=== PATIENT | male | born 1945 ===

== ENCOUNTER 2018-06-27 13:24 | Day surgery (SDC) | payer MEDICARE, OTHER, SELFPAY ==
--- NOTE | 2018-06-27 | PATH_ITS ---
[facility] Accession Number: [id number] . 01 Material submitted: . L1 . 02 Diagnosis: L1, Biopsy: Fragmented bone and fibrous tissue with features consistent with bone remodeling/fracture healing. No evidence of neoplasm. MRV/07/03/2018 . 02 Electronically signed: . Melani Escalona MD, Pathologist NPI- [id number] . 01 Gross description: . Received in formalin, labeled L1, is a core biopsy of murphy-white hard bone (length-0.8 cm, diameter-0.2 cm). Calcified and entirely submitted in cassette A1. ([id number]) /[facility] . 02 Pathologist provided ICD-10: S32.009S . 02 CPT . 404361 Performed at: 01 [facility] [address] [id number] MD Narayan Monge MD Phone: [phone] Performed at: 02 [facility] [address] [address] [place] [id number] MD Kole Mancilla MD Phone: [phone]
--- NOTE | 2018-06-27 | DI.RAD.S_ITS ---
PROCEDURE: XR LUMBAR SPINE MIN 4V INDICATIONS: L1 KYPHOPLASTY TECHNIQUE: 4 views of the lumbar spine acquired. COMPARISON: [facility] Outside Film, MR, MR LUMBAR SPINE WITHOUT CONTRAST, 06/12/2018, 11:54. [facility] [place], CR, XR LUMBAR SPINE 2 OR 3 VIEWS, 05/18/2018, 11:43. FINDINGS: Intraoperative spot fluoroscopic images demonstrating L1 vertebroplasty. Mild cement projects in the T12-L1 disc space. Dictated by: Charles Muse M.D. on 06/28/2018 at 10:54 Approved by: Charles Muse M.D. on 06/28/2018 at 10:56
[2018-06-27 14:17] VITALS: BMI 18.8
[2018-06-27 14:38] VITALS: BP 124/64; PULSE 83; RESP 17; TEMP 36.1; O2SAT 95
[2018-06-27] MEDS: LACTATED RINGERS 1,000 ML 42 ML IV (14:38)
--- NOTE | 2018-06-27 15:23 | PM.PREOP ---
Pre-operative Note Interval Note Pre-op Check: Yes History & Physical Reviewed by Physician and Yes Exam Performed Changes: No
--- NOTE | 2018-06-27 15:24 | PM.OP.1 ---
Operative Date/Time/Diagnoses Date of procedure: 06/27/18 Time of procedure: 16:27 Pre-op diagnosis: L1 compression fracture back pain osteoporosis Post-op diagnosis: same Procedure & Clinicians Procedure: L1 kyphoplasty Same procedure as scheduled: Yes Indications: [age] year old male with intractable pain from an L1 compression fracture. They had failed conservative management and requested operative intervention. Risks and benefits of surgery were discussed and appropriate consents were obtained. Surgeon: Osiel Kennedy Click Yes if Unassisted: Yes Anesthesia Type: General Operative Notes Findings: None Closure Type: primary Specimen(s): other (L1 vertebral body) Estimated Blood Loss (mL): 1 Procedure in detail: The patient was brought to the operating room and intubated on the table. They were then rolled over to the well-padded prone position. Time-out was performed. We confirmed positioning with two fluoroscopy views. The back was prepped and draped in the standard sterile fashion. Preoperative antibiotics were given. Using fluoroscopic guidance, the planned incision site was infiltrated with Marcaine with epinephrine and injected down to the entry site of the left pedicle of L1. A small stab incision was made and we advanced a Jamshiedi needle down the left pedicle into the vertebral body. A bone biopsy was harvested from this and sent to pathology. We then passed the DFine osteotome and opened it up to create a void inside the vertebral body. We then began injecting the cement. This was done with frequent fluoroscopy imaging. He began getting extravasation superiorly into the disc. We stopped filling and let it harden for a few minutes. After that we began filling again and no more leakage. Once we had good fill of the L1 vertebral body the injection was stopped and the trocars were removed. Final x-rays were taken. The wound was cleaned. Steri-Strips and sterile dressing were placed. Patient was rolled over, extubated, and brought to recovery without complications. Complications: none Condition: stable Disposition: PACU Plan for aftercare: Outpatient. Activity as tolerated.
[2018-06-27] MEDS: CEFAZOLIN 2 GM/100 ML FROZ.PIGGY IV (15:51)
--- NOTE | 2018-06-27 16:16 | SUR.OPER ---
Prone on spine table, head in foam head support, padded chest rolls, bilateral and pelvic supports, gel pad at knees, lower legs supported by pillows; nipples, genitalia and toes free of pressure, arms secured on flat table. Tape over blanket at thigh secured to table.
[2018-06-27] MEDS: BUPIVACAINE 0.25% W/ EPI VIAL 50 ML INJ (16:30)
[2018-06-27 16:35] VITALS: BP 155/81; PULSE 95; RESP 14; TEMP 36.4; O2SAT 99
[2018-06-27 16:40] VITALS: BP 156/69; PULSE 89; RESP 17; O2SAT 95
[2018-06-27 16:44] VITALS: BP 158/75; PULSE 90; RESP 18; O2SAT 94
[2018-06-27 16:47] VITALS: BP 143/74; PULSE 85; RESP 11; TEMP 36.8; O2SAT 97
[2018-06-27 17:07] VITALS: BP 153/81; PULSE 81; RESP 18; TEMP 36.9; O2SAT 96
[2018-06-27] MEDS: OXYCODONE/ACETAMINOPHEN 5/325 TABLET 1 TAB PO (17:26)
--- NOTE | 2018-06-27 17:45 | SUR.PHASEII ---
assumed care from dominga harrison, dressing to back c/d/i. assisted pt to br, steady on feet with use of cane. assisted pt to dress and pt c/o 5/10 pain to low, neuro unchanged, pt given applesauce and then medicated. [pt left when ready and left in stable condition.
== END 2018-06-27 17:35 | disposition home or self-care (01) ==
PROVIDERS: PCP Family Medicine; Visit Provider Orthopaedic Surgery
PROC: (CPT 22514; principal; 2018-06-27 15:15)
DX: S32.010A Wedge compression fracture of first lumbar vertebra, initial encounter for closed fracture (principal); M80.08XA Age-related osteoporosis with current pathological fracture, vertebra(e), initial encounter for fracture; M54.9 Dorsalgia, unspecified; M51.36 Other intervertebral disc degeneration, lumbar region; J44.9 Chronic obstructive pulmonary disease, unspecified; I25.119 Atherosclerotic heart disease of native coronary artery with unspecified angina pectoris; F17.210 Nicotine dependence, cigarettes, uncomplicated; I10 Essential (primary) hypertension; W19.XXXA Unspecified fall, initial encounter; I25.2 Old myocardial infarction
CPT/HCPCS: 22514; 72110; 76000; 88305; C1776; J0330; J0690; J2405; J2704; J3010